=== PATIENT | female | born 1955 | race Caucasian/White ===

== ENCOUNTER → 2018-02-22 | Outpatient (CLI) | END | disposition home or self-care (01) ==

== ENCOUNTER 2018-05-07 13:45 | Emergency (ER) | END 2018-05-07 16:00 | disposition home or self-care (01) ==

== ENCOUNTER → 2018-05-15 | Outpatient (CLI) | END | disposition home or self-care (01) ==

== ENCOUNTER → 2018-05-16 | Outpatient (CLI) | END | disposition home or self-care (01) ==

== ENCOUNTER → 2019-08-20 | Outpatient (CLI) | payer BC ==
[~2019-08-20] MED LIST: AZIT250T PO; IBUP-1561 PO; MED4DP PO; NAPR-985 PO
== END | disposition home or self-care (01) ==
LOC: LAB 16:09
PROVIDERS: ATTEND Internal Medicine
DX: I82.4Z2 Acute embolism and thrombosis of unspecified deep veins of left distal lower extremity (principal); E11.9 Type 2 diabetes mellitus without complications; M10.9 Gout, unspecified; M17.12 Unilateral primary osteoarthritis, left knee
CPT/HCPCS: 73560; 80053; 84560; 85025; 85651; 93971